=== PATIENT | female | born 1995 | race Caucasian/White ===

== ENCOUNTER 2020-12-25 16:28 | Outpatient (CLI) | payer OTHER, SELFPAY | END 2020-12-25 16:29 | disposition home or self-care (01) | LOC: LAB 16:38 | PROVIDERS: PCP Family Medicine; Visit Provider Obstetrics & Gynecology Reproductive Endocrinology | DX: Z32.00 Encounter for pregnancy test, result unknown (principal) | CPT/HCPCS: 36415; 84702 ==

== ENCOUNTER 2020-12-29 08:07 | Outpatient (CLI) | payer OTHER, SELFPAY | END 2020-12-29 08:08 | disposition home or self-care (01) | LOC: LAB 08:22 | PROVIDERS: PCP Family Medicine; Visit Provider Obstetrics & Gynecology Reproductive Endocrinology | DX: Z01.89 Encounter for other specified special examinations (principal) | CPT/HCPCS: 36415; 84702 ==

== ENCOUNTER 2021-08-06 12:52 | Outpatient (CLI) | payer MEDICAID, SELFPAY ==
--- NOTE | 2021-08-06 13:01 | US_ITS ---
WS: [id number] ULTRASOUND OB LIMITED TECHNIQUE: Limited ultrasound examination of the fetus. CLINICAL INFORMATION: GDM COMPARISON: May 25, 2021 FINDINGS: Cervix measures 4.7 cm Single interuterine gestation. presentation is cephalic Placental location is anterior. Placenta grade: 0. heart rate 150 BPM. SUSY 11.3 cm Estimated weight: g., %. EGA 36 weeks 1 day AFIA September 02, 2021 US/US OB BPP [place]ST [address]209 IMPRESSION: Biophysical profile 8 out of 8. breathin movement: 2 tone: 2 Amniotic fluid: 2 IMPRESSION: 1. Normal biophysical profile 8 out of 8 2. Cervix is long and closed measuring 5.1 cm. 3. presentation is vertex with lateral placenta. 4. Normal SUSY just below the median for gestational age.
== END 2021-08-06 12:53 | disposition home or self-care (01) ==
LOC: RAD 12:53
PROVIDERS: PCP Family Medicine; Visit Provider Family Medicine
DX: O24.419 Gestational diabetes mellitus in pregnancy, unspecified control (principal); Z3A.36 36 weeks gestation of pregnancy
CPT/HCPCS: 76819

== ENCOUNTER 2021-08-06 22:10 | Inpatient (IN) | payer MEDICAID, SELFPAY ==
[2021-08-06] VITALS (20 sets, daily range): BP systolic 121–158; BP diastolic 73–96; PULSE 63–93; RESP 16–17
[2021-08-06 19:59] LABS: Urine Creatinine 122 mg/dL (28-217)
[2021-08-06 21:07] LABS: UPRO/UCREAT Ratio 7.24 mg/mg CR; Urine Protein Random 883 mg/dL
[2021-08-06 22:29] LABS: Protein Urine 3+ (Negative); Specific Gravity, Urine 1.015 (1.005-1.030); Urine Appearance Clear (CLEAR); Urine Color Yellow (Yellow); pH Urine 6 (5-7)
[2021-08-06 22:30] LABS: Add Urine Microscopic? YES; Bilirubin Urine Neg (Negative); Blood Urine Neg (Negative); Glucose Urine UA Norm (Normal); Ketones Urine Negative (Negative); Leukocyte Esterase Urine Negative (Negative); Nitrate Urine Negative (Negative); RBC Urine 0-4 /hpf (0-2); Urobilinogen Urine 1 mg/dL (Negative); WBC Urine 0-4 /hpf (0-5)
[2021-08-06 22:31] LABS: Add Urine Culture? No; Bacteria Urine 2+ /hpf; Mucus Urine 1+ /hpf
[2021-08-06 22:39] LABS: Chloride 103 mmol/L (98-107); Potassium 3.7 mmol/L (3.5-5.1); Sodium 134 mmol/L (136-145)
[2021-08-06] MEDS: dextrose 5%-lactated ringers 1,000 ML 125 ML IV (22:39)
[2021-08-06] MEDS: ampicillin 2,000 MG in sodium chloride 0.9% (plus) 50 ML 100 MG IV (22:40)
[2021-08-06 22:48] LABS: Basophils % 0.2 %; Eosinophils # 0.1 10^3/uL (0.0-0.8); Eosinophils % 0.6 %; Hematocrit 33.5 % (37.0-47.0); Lymphocytes # 2.6 10^3/uL (0.8-4.8); Lymphocytes % 23.6 %; Mean Corpuscular HGB Conc 32.8 g/dL (30.0-36.0); Mean Corpuscular Volume 88.4 fl (81-99); Monocytes # 0.8 10^3/uL (0.2-0.9); Monocytes % 7.3 %; Neutrophils # 7.33 10^3/uL (1.8-7.7); Neutrophils % 67.9 %; Nucleated Red Blood Cells % 0 %; Platelet Count 133 10^3/cmm (130-400); Red Blood Count 3.79 10^6/uL (4.1-5.3); White Blood Count 10.8 10^3/uL (4.0-10.0)
[2021-08-06] MEDS: miSOPROStol 100 mcg tablet 25 MCG VAGINAL (23:12)
[2021-08-06 23:15] LABS: Alanine Aminotransferase 7 U/L (0-33); Alkaline Phosphatase 152 IU/L (35-105); Anion Gap 13.7 (5-19); Aspartate Amino Transferase 15 U/L (0-32); Blood Urea Nitrogen 13 mg/dL (6-20); Calcium 7.6 mg/dL (8.5-10.5); Carbon Dioxide 21 mmol/L (22-29); Globulin 2.6 g/dL (1.3-4.6); Glomerular Filtration Rate 194.5 mL/min (90-130); Glucose 80 mg/dL (65-115); Osmolality Calculated 277 mOsm/kg (285-295); Total Bilirubin 0.3 mg/dL (0.15-1.2); Total Protein 5.6 g/dL (6.6-8.7); Uric Acid 6.1 mg/dL (2.4-5.7)
[2021-08-06 23:30] LABS: Slide Review Slide Review Perform
[2021-08-07] VITALS (46 sets, daily range): BP systolic 123–163; BP diastolic 59–94; PULSE 58–82; RESP 16–20; TEMP 36.6–36.8; O2SAT 93–99
[2021-08-07] MEDS: ampicillin 1,000 MG in sodium chloride 0.9% (plus) 50 ML 100 MG IV ×2 (02:11→06:07)
[2021-08-07] MEDS: lactated ringers 1,000 ML 999 ML IV (03:30)
--- NOTE | 2021-08-07 06:32 | PM.OPHPUD ---
Labor & Delivery H&P Update Date of Procedure: August 07, 2021 Date H&P Performed: 08/05/21 Changes to previous documentation: The patient was noted to have 3+ protein in her urine. Her protein creatinine ratio was found to be 7.24. Her systolic blood pressure has been variable. None in the severe range but she has had systolic blood pressures in the 157-159 range. Admission Diagnosis: 1. at 36 weeks and 2 days presenting for induction due to preeclampsia with large amount of protein, and elevated blood pressures. 2. Gestational diabetes with good control. 3. Group B strep status unknown Other information: The patient's has been remarkable for having gestational diabetes that has been well controlled throughout. Her labs have been relatively unremarkable. Her blood type is O+. Her antibody screen is negative. Her drug screen was negative. She is rubella immune. Her infectious disease panel was negative. Related Problem List Diagnoses (1) Preeclampsia: (2) Gestational diabetes:
[2021-08-07 07:51] LABS: Glucose Point of Care 82 mg/dL (70-110)
[2021-08-07] MEDS: oxytocin 30 UNIT/500 ML BAG 600 UNIT IV (09:40)
--- NOTE | 2021-08-07 10:00 | PM.DELIVERY ---
Delivery Note: Date of delivery: August 07, 2021 Pre-delivery diagnoses: 26yo at 36w2d Gestational diabetes Pre-eclampsia Post-delivery diagnoses: Delivery of female via vaginal delivery Gestational diabetes Pre-eclampsia Procedure: Vaginal delivery Delivering Physician: Shi Howard DO Estimated blood loss (mL): 400 Pre-Delivery Course: Refer to documentation per Dr. Oneill. I was sitting in dictation station and called to help by nursing staff at approx 0930 due to imminent precipitous delivery. Briefly received history per nursing of patient induced this AM for pre-eclampsia and rapidly progressed to complete. Report gestational diabetes- diet controlled. Report mild range BPs this AM. Attending physician, Dr. Oneill had been notified and en route. Delivery: On entry to room, patient placed in lithotomy position. Noted to be complete and 0 station with FHT 60s and bulging bag. AROM performed with large amount of clear fluid. Patient instructed to push and initial push ineffective at changing station. Subsequent pushes noted to be effective with coaching and with approx 2-3 pushes the head delivered in CHRISTOFER position, no nuchal cord was present. Shoulders and rest of body delivered without difficulty. Baby was placed on mother's belly, stimulated and noted to be without spontaneous cry. Placenta spontaneously delivered rapidly and cord was immediately clamped and cut. Baby transferred to warmer for further resuscitation. Fundus was noted to be moderately boggy and noted to improve with fundal massage. Pitocin then started and fundus noted to be firm. The vagina and cervix were inspected and no cervical lacerations were noted. Midline 1st degree laceration noted but was hemostatic and not repaired. On inspection of the cervix- noted to be with clots in cervix- lower uterine segment swept free of clots and lower uterine segment then noted to become well contracted. Female born at 0939 with 5/9 weighing 5lbs and measuring 19 inches in length Placenta noted to be intact with centrally inserted umbilical cord. Complications: maternal- none, left to recover in stable condition under care of Dr. Oneill baby requiring initial resuscitation but improved and left bonding with mother in stable condition under care of Dr. Oneill Coding Level of Care Code Acute Front Office Attendant for myke Bruce
[2021-08-07] MEDS: ibuprofen 800 mg tablet PO ×2 (14:51→21:15)
[2021-08-07] MEDS: docusate sodium 100 mg Capsule PO (17:21)
[2021-08-07 23:31] LABS: Glucose Point of Care 88 mg/dL (70-110)
[2021-08-07 23:38] LABS: Hematocrit 33.7 % (37.0-47.0); Hemoglobin 11.1 g/dL (11.5-15.3); Mean Corpuscular HGB Conc 32.9 g/dL (30.0-36.0); Mean Corpuscular Hemoglobin 29.5 pg (28.0-34.0); Mean Corpuscular Volume 89.6 fl (81-99); Mean Platelet Volume 14.1 fL (7.4-10.4); Platelet Count 125 10^3/cmm (130-400); Red Blood Count 3.76 10^6/uL (4.1-5.3)
[2021-08-08 05:25] VITALS: BP 151/96; PULSE 64; RESP 14; O2SAT 97
[2021-08-08] MEDS: docusate sodium 100 mg Capsule PO (09:54)
[2021-08-08] MEDS: prenatal vitamin Capsule 1 CAP PO (09:54)
[2021-08-08] MEDS: ibuprofen 800 mg tablet PO ×3 (09:54→21:04)
[2021-08-08 09:59] VITALS: BP 148/95; PULSE 74; RESP 17; TEMP 36.8; O2SAT 98
--- NOTE | 2021-08-08 10:12 | PM.OBGYPN ---
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 She is breast-feeding well. Her blood sugars have been within normal limits. She has had some mildly elevated blood pressures but no other symptoms of preeclampsia. Her bleeding has been within normal limits. Labor: Station: +3 Monitor Mode: External Contraction Pattern: Irregular Status: Category I Vitals/I&O/Wt Last Vital Signs Temp 98.2 F 08/08/21 09:59 Pulse 74 08/08/21 09:59 Resp 17 08/08/21 09:59 BP 148/95 08/08/21 09:59 Pulse Ox 98 08/08/21 09:59 08/07/21 08/08/21 08/08/21 22:59 06:59 14:59 Output Total 900 / 900 Balance -900 / -900 Physical Exam Narrative: The patient is alert. She appears comfortable. Her heart has a regular rate and rhythm with no murmurs appreciated. Lungs are clear to auscultation bilaterally. Her fundus is firm and below the umbilicus. Data : 08/07/21 23:25 08/06/21 21:50 A&P Assessment and plan (1) Gestational diabetes: Her blood sugars have all been in the 80s and 90s. I am going to stop checking her blood sugar. Status: Resolved (2) Preeclampsia: Her blood pressures have been elevated but not in the severe range. No further intervention is needed at this time. Status: Resolved (3) Spontaneous vaginal delivery: Status: Resolved Attestations Medical Necessity Statement*: I anticipate the patient be discharged in 1 to 2 days. Her diabetes has been well controlled. Her preeclampsia appears to be improving. Coding Level of Care Code Acute Roll Out Manager for Chg Fwd Diagnoses Gestational diabetes O24.419 Preeclampsia O14.90 Spontaneous vaginal delivery O80
[2021-08-08 16:53] VITALS: BP 146/90; PULSE 70; RESP 16; TEMP 36.8
[2021-08-08 21:00] VITALS: BP 122/77; PULSE 83; RESP 14; O2SAT 96
[2021-08-09 04:50] VITALS: BP 137/87; PULSE 79; RESP 14; O2SAT 97
[2021-08-09] MEDS: ibuprofen 800 mg tablet PO (08:05)
[2021-08-09] MEDS: prenatal vitamin Capsule 1 CAP PO (08:05)
[2021-08-09 10:25] VITALS: BP 133/86; PULSE 88; RESP 16; TEMP 36.7
--- NOTE | 2021-08-09 14:54 | P.DS_ITS ---
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 Date of Admission: 08/06/21 22:10 Date of Discharge: 08/09/21 Attending Provider at Admission: Kwaku Oneill MD Attending Provider at Discharge: Kwaku Oneill MD Primary Care Provider: Kwaku Oneill Diagnoses at Discharge Discharge Diagnosis (1) Gestational diabetes: Status: Acute (2) Preeclampsia: Status: Acute (3) Spontaneous vaginal delivery: Status: Acute Reason for Visit Reason for Visit: PRE-ECLAMPTIC WORKUP Hospital Course Hospital Course The patient presented to the hospital for induction due to massive proteinuria and elevated blood pressures, including multiple blood pressures with her systolic blood pressure being in the high 150s. She was induced with Cytotec 25 mcg x 1. She went from a 2 to complete and less than 2 hours, and a 7 to complete in 10 minutes. The nurses contacted me notifying me that she was complete and pushing. Thankfully, Dr. Howard was available and was able to step in to deliver the baby. Postoperatively, the patient did very well. Her blood sugars were excellent. Her blood pressures were still elevated but improved. She had no other signs of preeclampsia. Information Peripartum Data: Infant Delivery Method: Vaginal Physical Exam Narrative: The patient is alert. She appears comfortable. Her heart has a regular rate and rhythm with no murmurs appreciated. Lungs are clear to auscultation bilaterally. Her fundus is firm and below the umbilicus. Discharge Data Studies Completed and Pending Laboratory Results WBC 13.0 10^3/uL (4.0-10.0) H 08/07/21 23:25 RBC 3.76 10^6/uL (4.1-5.3) L 08/07/21 23:25 Hgb 11.1 g/dL (11.5-15.3) L 08/07/21 23:25 Hct 33.7 % (37.0-47.0) L 08/07/21 23:25 MCV 89.6 fl (81-99) 08/07/21 23:25 MCH 29.5 pg (28.0-34.0) 08/07/21 23:25 MCHC 32.9 g/dL (30.0-36.0) 08/07/21 23:25 RDW 13.0 % (12.1-15.1) 08/07/21 23:25 Plt Count 125 10^3/cmm (130-400) L 08/07/21 23:25 MPV 14.1 fL (7.4-10.4) H 08/07/21 23:25 Neut % (Auto) 67.9 % 08/06/21 21:50 Lymph % (Auto) 23.6 % 08/06/21 21:50 [place] % (Auto) 7.3 % 08/06/21 21:50 Eos % (Auto) 0.6 % 08/06/21 21:50 Baso % (Auto) 0.2 % 08/06/21 21:50 Neut # (Auto) 7.33 10^3/uL (1.8-7.7) 08/06/21 21:50 Lymph # (Auto) 2.6 10^3/uL (0.8-4.8) 08/06/21 21:50 [place] # (Auto) 0.8 10^3/uL (0.2-0.9) 08/06/21 21:50 Eos # (Auto) 0.1 10^3/uL (0.0-0.8) 08/06/21 21:50 Baso # (Auto) 0.0 10^3/uL (0.0-0.1) 08/06/21 21:50 Nucleated RBC % (auto) 0 % 08/06/21 21:50 Nucleated RBCs # 0.0 /100WBC 08/06/21 21:50 Sodium 134 mmol/L (136-145) L 08/06/21 21:50 Potassium 3.7 mmol/L (3.5-5.1) 08/06/21 21:50 Chloride 103 mmol/L (98-107) 08/06/21 21:50 Carbon Dioxide 21 mmol/L (22-29) L 08/06/21 21:50 Anion Gap 13.7 (5-19) 08/06/21 21:50 BUN 13 mg/dL (6-20) 08/06/21 21:50 Creatinine 0.4 mg/dL (0.5-0.9) L 08/06/21 21:50 GFR Calculation 194.5 mL/min (90-130) H 08/06/21 21:50 Glucose 80 mg/dL (65-115) 08/06/21 21:50 POC Glucose 88 mg/dL (70-110) 08/07/21 23:27 Calculated Osmolality 277 mOsm/kg (285-295) L 08/06/21 21:50 Uric Acid 6.1 mg/dL (2.4-5.7) H 08/06/21 21:50 Calcium 7.6 mg/dL (8.5-10.5) L 08/06/21 21:50 Total Bilirubin 0.3 mg/dL (0.15-1.2) 08/06/21 21:50 AST 15 U/L (0-32) 08/06/21 21:50 ALT 7 U/L (0-33) 08/06/21 21:50 Alkaline Phosphatase 152 IU/L (35-105) H 08/06/21 21:50 Total Protein 5.6 g/dL (6.6-8.7) L 08/06/21 21:50 Albumin 3.0 g/dL (3.5-5.2) L 08/06/21 21:50 Globulin 2.6 g/dL (1.3-4.6) 08/06/21 21:50 Urine Color Yellow (Yellow) 08/06/21 19:05 Urine Appearance Clear (CLEAR) 08/06/21 19:05 Urine pH 6 (5-7) 08/06/21 19:05 Ur Specific [place] 1.015 (1.005-1.030) 08/06/21 19:05 Urine Protein 3+ (Negative) H 08/06/21 19:05 Urine Glucose (UA) Norm (Normal) 08/06/21 19:05 Urine Ketones Negative (Negative) 08/06/21 19:05 Urine Blood Neg (Negative) 08/06/21 19:05 Urine Nitrate Negative (Negative) 08/06/21 19:05 Urine Bilirubin Neg (Negative) 08/06/21 19:05 Urine Urobilinogen 1 mg/dL (Negative) H 08/06/21 19:05 Ur Leukocyte Esterase Negative (Negative) 08/06/21 19:05 Urine RBC 0-4 /hpf (0-2) H 08/06/21 19:05 Urine WBC 0-4 /hpf (0-5) H 08/06/21 19:05 Ur Squamous Epith Cells 10-15 /hpf (0-5) H 08/06/21 19:05 Amorphous Sediment Not Reportable 08/06/21 19:05 Urine Bacteria 2+ /hpf (NONE) H 08/06/21 19:05 Urine Mucus 1+ /hpf 08/06/21 19:05 U Random Total Protein 883 mg/dL 08/06/21 19:05 Urine Creatinine 122 mg/dL (28-217) 08/06/21 19:05 Protein/Creatinin Ratio 7.24 mg/mg CR 08/06/21 19:05 Blood Type O Positive 08/06/21 21:50 Rho(D) Type Positive 08/06/21 21:50 Antibody Screen Negative 08/06/21 21:50 Vitals Last Vital Signs Temp 98.1 F 08/09/21 10:25 Pulse 88 08/09/21 10:25 Resp 16 08/09/21 10:25 BP 133/86 08/09/21 10:25 Pulse Ox 97 08/09/21 04:50 Discharge Plan Discharge Patient Disposition: Home Condition: Stable Prescriptions: New ibuprofen 800 mg Tablet 800 mg PO TID Qty: 20 0RF Continued erythromycin 5 mg/gram (0.5 %) ointment 0.5 inch ophthalmic (eye) QID 7 Days Qty: 3.5 0RF Discharge Orders: Discharge Order (Routine); Ordered 08/09/21 Ordered By: Kwaku Oneill Referrals: Kwaku Oneill MD [Physician] - 08/11/21 1:15 pm (6 week appt 09/22/21 at 1:30pm) Discharge Diet: Usual diet Discharge Activity: Limit activity as instructed Patient Instructions: Depression (DC), Bleeding (DC), Preeclampsia and Eclampsia After Delivery (GEN), OB Discharge Report, OB Food/Drug Interaction Guide, Opioid Safety, OB Home Care, OB Vaginal Deliveries 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
[2021-08-09 15:31] VITALS: BP 129/85; PULSE 87; RESP 16; TEMP 36.8
== END 2021-08-09 15:25 | disposition home or self-care (01) | DRG 807 ==
LOC: OPOB 08-07 06:06 → OBGYN 08-07 06:06
PROVIDERS: Admitting Provider Family Medicine; PCP Family Medicine; Visit Provider Family Medicine
DX: O14.94 Unspecified pre-eclampsia, complicating childbirth (principal); Z37.0 Single live birth; O24.429 Gestational diabetes mellitus in childbirth, unspecified control; O62.3 Precipitate labor; Z3A.36 36 weeks gestation of pregnancy
CPT/HCPCS: 12345; 36415; 36416; 59025; 59409; 80053; 81001; 82570; 82962; 84156; 84550; 85025; 85027; 86850; 86900; 99211; J0290